=== PATIENT | male | born 1955 | race Caucasian/White ===

== ENCOUNTER 2022-04-24 09:14 | Day surgery (SDC) | payer OTHER ==
[~2022-04-24 09:14] MED LIST: Acetaminophen 325 MG Tab PO SCH; Midazolam 1 MG/ML 2 ML SDV ONE; Morphine 8 MG, EPINEPHrine 0.3 MG, Cefuroxime 750 MG, Ketorolac 30 MG, Sodium Chloride ... PRN; Pregabalin 25 MG Cap PO SCH; Propofol 200 MG/20 ML SDV ONE; oxyCODONE ER 10 MG TAB.ER PO SCH
[2022-04-24] MEDS ORDERED: Metoprolol Succinate 25 MG Tab.ER PO ONE ×2 (10:00→10:29)
[2022-04-24] MEDS ORDERED: Vancomycin 1 GM SDV ONE (10:01)
[2022-04-24] MEDS ORDERED: Triamcinolone Acetonide 40 MG/ML 1 ML SDV ONE (10:23)
[2022-04-24] MEDS ORDERED: Bupivacaine 0.25% 10 ML SDV ONE (10:23)
[2022-04-24] MEDS ORDERED: ceFAZolin 2 GM Vial ONE (10:58)
[2022-04-24] MEDS ORDERED: fentaNYL 100 MCG/2 ML SDV IVPUSH PRN (11:00)
[2022-04-24] MEDS ORDERED: HYDROmorphone 0.5 MG/0.5 ML Syringe IVPUSH PRN (11:00)
[2022-04-24] MEDS ORDERED: Ondansetron 4 MG/2 ML SDV IVPUSH PRN (11:00)
[2022-04-24] MEDS ORDERED: ePHEDrine 50 MG/ML SDV ONE (11:06)
[2022-04-24] MEDS ORDERED: Propofol 200 MG/20 ML SDV ONE ×2 (11:20→12:06)
[2022-04-24] MEDS ORDERED: Lactated Ringers 1,000 ML IV SCH (11:30)
[2022-04-24] MEDS ORDERED: oxyCODONE 5 MG Tab PO ONE (15:00)
== END 2022-04-24 15:15 | disposition home or self-care (01) ==
LOC: JD.SDS 09:14
PROVIDERS: ATTEND Orthopaedic Surgery
DX: M17.0 Bilateral primary osteoarthritis of knee (principal); E11.9 Type 2 diabetes mellitus without complications; I10 Essential (primary) hypertension; G89.29 Other chronic pain; E66.9 Obesity, unspecified; K21.9 Gastro-esophageal reflux disease without esophagitis; E78.00 Pure hypercholesterolemia, unspecified; E55.9 Vitamin D deficiency, unspecified; Z98.890 Other specified postprocedural states; Z79.82 Long term (current) use of aspirin; Z79.899 Other long term (current) drug therapy; Z68.35 Body mass index [BMI] 35.0-35.9, adult
CPT/HCPCS: 0055T; 20610; 27447; 73560; 82947; 97110; 97116; 97161; A9270; C1713; C1776; J0171; J0690; J0697; J1885; J2250; J2270; J2704; J3301; J3370; J3490; J7120; 01402; 64450